=== PATIENT | male | born 1985 | race Caucasian/White ===

== ENCOUNTER 2022-06-18 13:31 | Outpatient (CLI) | payer BC, SELFPAY ==
--- NOTE | 2022-06-18 14:00 | CRLHL7_ITS ---
For Patients: As a result of the Century Cures Act, medical imaging exams and procedure reports are released immediately into your electronic medical record. You may view this report before your referring provider. If you have questions, please contact your health care provider. INDICATION: ANAL ABSCESS/FISTULA Indication: Anal abscess. Perianal fistula. Technique: MRI of the pelvis without and with intravenous gadolinium. Three plane localizer, axial T2 weighted, axial STIR, coronal T2 weighted, axial coronal T2 weighted haste, axial and sagittal T2 weighted haste with fat suppression, and pre and post contrast axial, sagittal, and coronal T1 weighted fat-suppressed VIBE pulse sequences were obtained. 15 cc of IV dotarem. Comparison: None. Findings: There is an enhancing tract present within the anal canal, which extends to the skin surface. This appears confined by the external anal sphincter. There is no evidence for supralevator extension, and no drainable fluid collection in the ischiorectal/ischioanal fossa. The tract appears hyperintense on T2 weighted images with fat suppression, which suggest active disease/granulation tissue. This finding is seen on image 22, series 11. The finding is also seen well on series 7, images 24-28. Urinary bladder and prostate are normal. Seminal vesicles are normal. There is no mural thickening within the included segments of the small bowel and colon. Normal marrow signal intensity. Nonenlarged inguinal lymph nodes. No pelvic sidewall lymphadenopathy. Impression: 1. 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 2. No drainable fluid collection within the ischiorectal/ischioanal fossae. 3. No findings on MRI for supralevator extension. Dictated by Elmer Kelly MD @ 06/25/2022 8:21:00 AM Dictated by: Elmer Kelly MD @ 06/25/2022 08:21:07 (Electronically Signed)
== END 2022-06-18 13:32 | disposition home or self-care (01) ==
LOC: MRI 13:32
PROVIDERS: PCP Family Medicine; Visit Provider Surgery
DX: K61.0 Anal abscess (principal)
CPT/HCPCS: 72197; A9575

== ENCOUNTER 2022-06-29 06:58 | Day surgery (SDC) | payer BC, SELFPAY ==
[2022-06-29] VITALS (27 sets, daily range): BP systolic 84–125; BP diastolic 43–82; PULSE 61–113; RESP 16; TEMP 36.2–36.7; O2SAT 96–99; BMI 23.5
[2022-06-29] MEDS: LACTATED RINGERS 1000 ML 1,000 ML 100 ML IV (07:30)
[2022-06-29] MEDS: SODIUM CHLORIDE 0.9 % (FLUSH) 10 ML SYRINGE IVF (07:46)
[2022-06-29] MEDS: ETHYL CHLORIDE 1 APPLICATION 1 APPLIC TOPICAL (07:46)
--- NOTE | 2022-06-29 08:09 | PM.GSPRC ---
Operative Note Date of procedure: 06/29/22 Type of Procedure: 1. Exam under anesthesia and fistulotomy. Procedure Description: After discussing the risks and benefits of the procedure, the patient signed informed consent.? The operative site was marked and the patient was brought to the operating room and placed on the operating table in supine position.? Care was taken to pad the patient's pressure points.?? Spinal anesthesia was administered and patient was sedated by anesthesia.?? The operative site was then prepped and draped in the usual sterile fashion.? A time-out was then performed. Perianal skin was examined and and no enlarged hemorroidal tissue was seen. Left anterior lateral skin opening was visualized and a lacrimal probe was placed through the skin opening. It easily passed into the anal canal confirming presence of perianal fistula. Minimal tissue was superficial to the fistula tract.. This was a superficial fistula and fistulotomy was pursued. Tissues overlying the fistula were divided sequentially with cautery. Minimal to no internal sphincter muscle fibers were divided. The fistulous tract appeared to extend lateral to the skin opening for less than 1 cm. The skin overlying this fistulous tract was also opened with cautery. The entire base of the fistula was bluntly debrided with a curette. Hemostasis was achieved with cautery. The edges of the skin and anoderm were then marsupialized with chromic and Vicryl sutures. Local anesthetic was injected for bilateral pudendal nerve block. Patient tolerated this procedure well. ? The patient was then woken and transported to the recovery area in stable condition. ? Findings: Superficial perinala fistula Anesthesia: MAC and spinal Surgeon: Perri Worley MD Condition: stable Disposition: PACU
[2022-06-29] MEDS: BUPIVACAINE 0.25% 30 ML 6.5 ML INJECTION (08:30)
--- NOTE | 2022-06-29 09:08 | W.ANESCHARGE ---
Anesthesia Charges Start Date/Time Anesthesia Start Date: 06/29/22 Anesthesia Start Time: 08:03 Stop Date/Time Anesthesia Stop Date: 06/29/22 Anesthesia Stop Time: 09:00 Summary Emergency: No
--- NOTE | 2022-06-29 09:20 | W.ANESCHARGE ---
Anesthesia Charges Start Date/Time Anesthesia Start Date: 06/29/22 Anesthesia Start Time: 08:03 Stop Date/Time Anesthesia Stop Date: 06/29/22 Anesthesia Stop Time: 09:00 Summary Emergency: No
== END 2022-06-29 10:52 | disposition home or self-care (01) ==
PROVIDERS: PCP Family Medicine; Visit Provider Surgery
PROC: (CPT 46270; principal; 2022-06-29 08:15)
DX: K60.3 Anal fistula (principal)
CPT/HCPCS: 46270; 00902; J1100; J1885; J2250; J2400; J2405; J2704; J3010; J3490; J7120

== ENCOUNTER 2023-08-20 08:07 | Outpatient (CLI) | payer BC, SELFPAY | END 2023-08-20 08:08 | disposition home or self-care (01) | LOC: NFLDREF 08-23 07:49 | PROVIDERS: PCP Family Medicine; Referring Provider Family Medicine; Visit Provider Family Medicine | DX: Z00.00 Encounter for general adult medical examination without abnormal findings (principal); I10 Essential (primary) hypertension; E78.00 Pure hypercholesterolemia, unspecified | CPT/HCPCS: 80053; 80061 ==

== ENCOUNTER 2023-08-31 10:39 | Outpatient (CLI) | payer BC, SELFPAY ==
[2023-08-31 11:49] VITALS: BP 110/66; PULSE 110; RESP 16
--- NOTE | 2023-08-31 11:53 | W.PM.STED ---
Stress Test Note Date Date Seen: 08/31/23 Date of test: 08/31/23 Providers Primary care provider: Charles Singh Stress test physician: Radha Ryan Stress Test Note Stress test ordered: Exercise Stress Test Indication for test: Chest pain Stress test medicine: None Results discussion: Resting EKG: Sinus rhythm, 63 beats per minute. Resting blood pressure: 110/72 Stress test: Patient exercised on the treadmill following standard Erick protocol. Patient exercised to 11 minutes 38 seconds, achieving 12.1 Mets. He had a maximum heart rate of 174 beats per minute which was 113% of a calculated target heart rate of 153. Near the termination of exercise, systolic blood pressure was 164 but nursing staff could not hear the diastolic. This gives him a rate pressure product of 28,536. Patient experienced calf discomfort and shortness of breath, neither out of proportion to the exercise level he was experiencing per his report. There was no reported chest pain, he had no arrythmia or ischemic change on EKG during this stress test. Test was terminated due to patient being above goal heart rate and reaching exercise capacity. Impression: Subjectively negative, objectively negative exercise stress test. Follow up suggested: We will get the formalize report to his primary care provider. He should follow up with his primary care provider. Did review with him that if he has further chest pain episodes, should be evaluated.
== END 2023-08-31 11:58 | disposition home or self-care (01) ==
LOC: STRESS 10:40
PROVIDERS: PCP Family Medicine; Visit Provider Family Medicine
DX: R07.9 Chest pain, unspecified (principal)
CPT/HCPCS: 93016; 93017

== ENCOUNTER 2023-11-22 08:00 | Outpatient (CLI) | payer BC, SELFPAY | END 2023-11-22 08:01 | disposition home or self-care (01) | LOC: NFLDREF 11-24 11:32 | PROVIDERS: PCP Family Medicine; Referring Provider Family Medicine; Visit Provider Family Medicine | DX: E78.00 Pure hypercholesterolemia, unspecified (principal) | CPT/HCPCS: 80061; 80076 ==

== ENCOUNTER 2025-01-30 08:38 | Outpatient (CLI) | payer BC, SELFPAY | END 2025-01-30 08:39 | disposition home or self-care (01) | LOC: NFLDREF 02-02 15:57 | PROVIDERS: PCP Family Medicine; Referring Provider Family Medicine; Visit Provider Family Medicine | DX: E78.00 Pure hypercholesterolemia, unspecified (principal); I10 Essential (primary) hypertension | CPT/HCPCS: 80053; 80061 ==